=== PATIENT | male | born 1985 | race African-American/Black ===

== ENCOUNTER 2016-09-24 17:25 | Inpatient (IN) | payer OTHER ==
[~2016-09-24] VITALS: Ht 162.6 cm; Wt 102.6 kg
[~2016-09-24 17:25] MED LIST: ACETAMINOPHEN-120 ML PO; AUGMENTIN600 MG/5 M PO; AUGMENTIN80 MG/ML PO; INDOCIN25 MG PO; MEDROL DOSEPAK4 MG PO; NOHOMEMEDS; PREDNISONE10 M1 PO; PREDNISONE20 MG PO; ROXICET 5-325500 ML PO; TRAMADOL HCL50 MG PO; VALIUM5 MG PO; ZITHROMAX500 MG PO
[2016-09-24 18:03] LABS: HEMATOCRIT 40.6 % (38.0-50.0); MCH 30.5 PG (29.0-34.0); MCHC 33.5 G/DL (30.0-36.0); MEAN PLAT.VOLUME 8.5 uM^3 (9.0-12.4); PLATELET COUNT 408 K/uL (156-360); RBC DIS.WIDTH-CV 14.2 % (11.8-14.6); RBC DIS.WIDTH-SD 46.8 % (39-53); RED BLOOD COUNT 4.46 M/uL (4.00-5.50); WHITE BLOOD COUNT 29.1 K/uL (4.1-10.2)
[2016-09-24 18:15] LABS: CHLORIDE 97 mEq/L (99-109); POTASSIUM 4.1 mEq/L (3.7-5.4); SODIUM 136 mEq/L (136-147)
[2016-09-24 18:17] LABS: GLUCOSE 138 mg/dL (70-99)
[2016-09-24 18:18] LABS: ANION GAP 17 MEQ/L (2-14)
[2016-09-24 18:19] LABS: TOTAL BILIRUBIN 1.4 mg/dL (0.0-1.0)
[2016-09-24 18:21] LABS: ALKALINE PHOSPHATASE 107 IU/L (3-129); GFR ESTIMATE (CALCULATED) 19 mL/min/
[2016-09-24 18:22] LABS: UREA NITROGEN (BUN) 33 mg/dL (9-23)
[2016-09-24 18:23] LABS: DIRECT BILIRUBIN 0.8 mg/dL (0.0-0.3)
[2016-09-24 18:24] LABS: LIPASE 30 U/L (1.0-51.0)
[2016-09-24 18:48] LABS: ADD MIUA? YES; BILIRUBIN NEGATIVE; BLOOD LARGE; COLOR DK YELLOW ((YELLOW)); GLUCOSE (STRIP) NEGATIVE; KETONES NEGATIVE; LEUKOCYTES LARGE; NITRITE NEGATIVE; PH, URINE 6.5 (5-8); PROTEIN (STRIP) >=300; SPECIFIC GRAVITY 1.015 (1.000-1.030)
[2016-09-24 19:38] LABS: AMORPHOUS URATES CRYSTALS 1+; CALCIUM OXALATE CRYSTALS 1+; CRYSTALS PRESENT; WHITE BLOOD CELLS TNTC /HPF (0-5)
[2016-09-24 19:39] LABS: BACTERIA 2+; CASTS NONE SEEN /LPF; EPITHELIAL CELLS 1+; MUCUS NONE SEEN; UCUL ADDED? YES
[2016-09-24] MEDS ORDERED: ADVIL200 MG PO (19:55)
[2016-09-24] MEDS ORDERED: TYLENOL EXTRA500 MG PO (19:55)
[2016-09-24 22:05] VITALS: BP 131/75
[2016-09-25 03:28] VITALS: BP 107/68
[2016-09-25 07:24] LABS: HEMATOCRIT 34.7 % (38.0-50.0); MCH 30.6 PG (29.0-34.0); MCHC 32.6 G/DL (30.0-36.0); MEAN PLAT.VOLUME 9.1 uM^3 (9.0-12.4); PLATELET COUNT 311 K/uL (156-360); RBC DIS.WIDTH-CV 14.8 % (11.8-14.6); RBC DIS.WIDTH-SD 50.5 % (39-53); RED BLOOD COUNT 3.69 M/uL (4.00-5.50); WHITE BLOOD COUNT 24.1 K/uL (4.1-10.2)
[2016-09-25 07:28] LABS: ALKALINE PHOSPHATASE 94 IU/L (3-129); ANION GAP 14 MEQ/L (2-14); CHLORIDE 105 MEQ/L (99-109); GFR ESTIMATE (CALCULATED) 19 mL/min/; GLUCOSE 132 mg/dL (70-99); POTASSIUM 4.3 MEQ/L (3.7-5.4); SAMPLE HEMOLYSIS CHECK 0; SAMPLE ICTERIC CHECK 0; SAMPLE LIPEMIA CHECK 0; SODIUM 139 MEQ/L (136-147); UREA NITROGEN (BUN) 36 mg/dL (9-23)
[2016-09-25 07:34] VITALS: BP 136/90
[2016-09-25 11:35] VITALS: BP 143/79
[2016-09-25 15:54] VITALS: BP 167/74
[2016-09-25 23:53] VITALS: BP 147/77
[2016-09-26 07:10] VITALS: BP 134/85
[2016-09-26 15:01] VITALS: BP 143/89
[2016-09-26 23:25] VITALS: BP 137/81
[2016-09-27 06:52] LABS: EOSINOPHIL (%) 0.4 % (0-5); EOSINOPHIL COUNT 0.1 K/uL (0-0.3); HEMATOCRIT 31.4 % (38.0-50.0); IMMATURE GRANULOCYTE (%) 0.9 % (0.0-0.7); IMMATURE GRANULOCYTE COUNT 0.1 K/uL; LYMPHOCYTE COUNT 1.2 K/uL (1.0-2.8); MCH 30.6 PG (29.0-34.0); MCHC 33.4 G/DL (30.0-36.0); MCV 91.5 FL (86-99); MEAN PLAT.VOLUME 9.5 uM^3 (9.0-12.4); MONOCYTE (%) 9.3 % (3-12); MONOCYTE COUNT 1.4 K/uL (0-0.8); NEUTROPHIL (%) 81.3 % (45-76); NEUTROPHIL COUNT 11.9 K/uL (1.8-6.4); PLATELET COUNT 285 K/uL (156-360); RBC DIS.WIDTH-CV 15.4 % (11.8-14.6); RBC DIS.WIDTH-SD 51.9 % (39-53); RED BLOOD COUNT 3.43 M/uL (4.00-5.50); WHITE BLOOD COUNT 14.7 K/uL (4.1-10.2)
[2016-09-27 07:06] LABS: ANION GAP 13 MEQ/L (2-14); CHLORIDE 105 MEQ/L (99-109); GFR ESTIMATE (CALCULATED) 17 mL/min/; GLUCOSE 115 mg/dL (70-99); POTASSIUM 3.8 MEQ/L (3.7-5.4); SAMPLE HEMOLYSIS CHECK 0; SAMPLE ICTERIC CHECK 0; SAMPLE LIPEMIA CHECK 0; SODIUM 133 MEQ/L (136-147); TOTAL BILIRUBIN 1.6 MG/DL (0.0-1.0); UREA NITROGEN (BUN) 35 mg/dL (9-23)
[2016-09-27 07:07] LABS: ALKALINE PHOSPHATASE 126 IU/L (3-129)
[2016-09-27 08:02] VITALS: BP 146/93
[2016-09-27 16:00] VITALS: BP 153/100
[2016-09-28] VITALS: BP 140/81
[2016-09-28 06:35] LABS: EOSINOPHIL COUNT 0.1 K/uL (0-0.3); HEMATOCRIT 31.8 % (38.0-50.0); IMMATURE GRANULOCYTE (%) 1.7 % (0.0-0.7); IMMATURE GRANULOCYTE COUNT 0.2 K/uL; LYMPHOCYTE COUNT 1.3 K/uL (1.0-2.8); MCH 30.1 PG (29.0-34.0); MCHC 32.7 G/DL (30.0-36.0); MCV 92.2 FL (86-99); MEAN PLAT.VOLUME 9.3 uM^3 (9.0-12.4); MONOCYTE (%) 10.8 % (3-12); MONOCYTE COUNT 1.2 K/uL (0-0.8); NEUTROPHIL COUNT 8.7 K/uL (1.8-6.4); PLATELET COUNT 321 K/uL (156-360); RBC DIS.WIDTH-CV 15.7 % (11.8-14.6); RBC DIS.WIDTH-SD 52.7 % (39-53); RED BLOOD COUNT 3.45 M/uL (4.00-5.50); WHITE BLOOD COUNT 11.5 K/uL (4.1-10.2)
[2016-09-28 07:03] LABS: ANION GAP 9 MEQ/L (2-14); CHLORIDE 110 MEQ/L (99-109); GFR ESTIMATE (CALCULATED) 21 mL/min/; GLUCOSE 98 mg/dL (70-99); SAMPLE HEMOLYSIS CHECK 0; SAMPLE ICTERIC CHECK 0; SAMPLE LIPEMIA CHECK 0; SODIUM 139 MEQ/L (136-147); UREA NITROGEN (BUN) 30 mg/dL (9-23)
[2016-09-28 08:04] VITALS: BP 177/98
[2016-09-28 09:00] VITALS: BP 143/96
[2016-09-28 16:31] VITALS: BP 143/97
[2016-09-28 20:26] VITALS: BP 138/80
[2016-09-28 22:56] VITALS: BP 152/82
[2016-09-29 07:52] LABS: HEMATOCRIT 31.1 % (38.0-50.0); MCH 29.6 PG (29.0-34.0); MCHC 31.8 G/DL (30.0-36.0); MCV 93.1 FL (86-99); PLATELET COUNT 382 K/uL (156-360); RBC DIS.WIDTH-CV 15.8 % (11.8-14.6); RED BLOOD COUNT 3.34 M/uL (4.00-5.50); WHITE BLOOD COUNT 11.1 K/uL (4.1-10.2)
[2016-09-29 08:13] VITALS: BP 168/92
[2016-09-29 08:19] LABS: ANION GAP 12 MEQ/L (2-14); CHLORIDE 111 MEQ/L (99-109); GFR ESTIMATE (CALCULATED) 26 mL/min/; GLUCOSE 91 mg/dL (70-99); POTASSIUM 3.9 MEQ/L (3.7-5.4); SAMPLE HEMOLYSIS CHECK 0; SAMPLE ICTERIC CHECK 0; SAMPLE LIPEMIA CHECK 0; SODIUM 141 MEQ/L (136-147); UREA NITROGEN (BUN) 21 mg/dL (9-23)
[2016-09-29 10:09] LABS: EOSINOPHIL (%) 1.4 % (0-5); EOSINOPHIL COUNT 0.2 K/uL (0-0.3); HEMATOLOGY COMMENT 1 SMEAR COMPATIBLE; IMMATURE GRANULOCYTE (%) 4.8 % (0.0-0.7); IMMATURE GRANULOCYTE COUNT 0.5 K/uL; LYMPHOCYTE COUNT 1.3 K/uL (1.0-2.8); MONOCYTE COUNT 1.1 K/uL (0-0.8); NEUTROPHIL (%) 71.6 % (45-76); NEUTROPHIL COUNT 7.9 K/uL (1.8-6.4); USER ID STC
[2016-09-29 16:34] VITALS: BP 158/89
[2016-09-29 19:37] LABS: C DIFF TOXIN POSITIVE (NEGATIVE)
[2016-09-29 19:39] LABS: PROBE CHECK PASS
[2016-09-30 03:06] VITALS: BP 140/82
[2016-09-30 07:25] LABS: HEMATOCRIT 30.4 % (38.0-50.0); MCHC 31.9 G/DL (30.0-36.0); MCV 94.1 FL (86-99); RBC DIS.WIDTH-CV 16.1 % (11.8-14.6); RBC DIS.WIDTH-SD 55.3 % (39-53); RED BLOOD COUNT 3.23 M/uL (4.00-5.50); WHITE BLOOD COUNT 12.1 K/uL (4.1-10.2)
[2016-09-30 08:27] LABS: ANION GAP 10 MEQ/L (2-14); CHLORIDE 112 MEQ/L (99-109); GFR ESTIMATE (CALCULATED) 34 mL/min/; GLUCOSE 89 mg/dL (70-99); POTASSIUM 4.2 MEQ/L (3.7-5.4); SAMPLE HEMOLYSIS CHECK 0; SAMPLE ICTERIC CHECK 0; SAMPLE LIPEMIA CHECK 0; SODIUM 139 MEQ/L (136-147); UREA NITROGEN (BUN) 17 mg/dL (9-23)
[2016-09-30 08:28] LABS: ABS NEUTROPHIL COUNT 8.19; ANISOCYTOSIS OCC; EOSINOPHIL ABS CT 0.48; HYPOCHROMASIA OCC; MEAN PLAT.VOLUME 9.2 uM^3 (9.0-12.4); PLAT.SUFFICIENCY INCREASED; PLATELET COUNT 432 K/uL (156-360); USER ID CL
[2016-09-30 11:02] VITALS: BP 147/88
[2016-09-30 14:57] LABS: DELETE MACHINE DIFF? YES
[2016-09-30 16:28] VITALS: BP 179/95
[2016-09-30 23:14] VITALS: BP 165/89
[2016-10-01 06:55] LABS: HEMATOCRIT 30.4 % (38.0-50.0); MCH 30.1 PG (29.0-34.0); MCHC 31.9 G/DL (30.0-36.0); MCV 94.4 FL (86-99); MEAN PLAT.VOLUME 8.9 uM^3 (9.0-12.4); PLATELET COUNT 472 K/uL (156-360); RBC DIS.WIDTH-SD 55.8 % (39-53); RED BLOOD COUNT 3.22 M/uL (4.00-5.50); WHITE BLOOD COUNT 12.1 K/uL (4.1-10.2)
[2016-10-01 07:25] LABS: ANION GAP 9 MEQ/L (2-14); CHLORIDE 113 MEQ/L (99-109); GFR ESTIMATE (CALCULATED) 35 mL/min/; GLUCOSE 88 mg/dL (70-99); POTASSIUM 4.5 MEQ/L (3.7-5.4); SAMPLE HEMOLYSIS CHECK 0; SAMPLE ICTERIC CHECK 0; SAMPLE LIPEMIA CHECK 0; SODIUM 143 MEQ/L (136-147); UREA NITROGEN (BUN) 16 mg/dL (9-23)
[2016-10-01 07:47] VITALS: BP 169/95
[2016-10-01 07:56] LABS: ABS NEUTROPHIL COUNT 8.95; ANISOCYTOSIS 1+; BASOPHIL COUNT 0.1 K/uL (0-0.1); EOSINOPHIL ABS CT 0.12; EOSINOPHIL COUNT 0.2 K/uL (0-0.3); IMMATURE GRANULOCYTE (%) 6.7 % (0.0-0.7); IMMATURE GRANULOCYTE COUNT 0.8 K/uL; LYMPHOCYTE COUNT 1.6 K/uL (1.0-2.8); MACROCYTES OCC; MONOCYTE (%) 8.2 % (3-12); NEUTROPHIL (%) 69.2 % (45-76); NEUTROPHIL COUNT 8.4 K/uL (1.8-6.4); PLAT.SUFFICIENCY INCREASED; USER ID CCL
[2016-10-01 18:37] VITALS: BP 158/69
[2016-10-01] MEDS ORDERED: CIPROFLOXACIN500 M1 PO (18:43)
[2016-10-01] MEDS ORDERED: AMLODIPINE BES2.5 MG PO (18:44)
[2016-10-01] MEDS ORDERED: TAMSULOSIN HCL0.4 MG PO (18:45)
== END 2016-10-01 19:04 | disposition home or self-care (01) | DRG 872 ==
LOC: EME 17:25 → EDOF 20:31 → 5EAST 20:31
PROVIDERS: Internal Medicine
DX: A41.81 Sepsis due to Enterococcus (principal); N10 Acute pyelonephritis; N13.6 Pyonephrosis; N17.9 Acute kidney failure, unspecified; A04.7 Enterocolitis due to Clostridium difficile; E87.2 Acidosis; E87.1 Hypo-osmolality and hyponatremia; E86.0 Dehydration; G89.29 Other chronic pain; F90.0 Attention-deficit hyperactivity disorder, predominantly inattentive type; F17.210 Nicotine dependence, cigarettes, uncomplicated; E66.9 Obesity, unspecified; Z68.38 Body mass index [BMI] 38.0-38.9, adult; F10.21 Alcohol dependence, in remission; I10 Essential (primary) hypertension; E78.5 Hyperlipidemia, unspecified; D64.9 Anemia, unspecified
CPT/HCPCS: 71020; 74000; 74176; 80048; 80053; 80069; 81003; 82248; 83605; 83690; 85025; 85027; 87040; 87077; 87086; 87186; 87493; 87801; 94799; 99281; 99285; C1876; J0696; J1170; J2250; J2270; J2405; J3010; J7030; J7050

== ENCOUNTER → 2016-10-29 | Outpatient (CLI) | payer OTHER ==
[~2016-10-29] VITALS: Ht 175.3 cm; Wt 106.6 kg
[~2016-10-29] MED LIST changes: +ADVIL200 MG PO; +AMLODIPINE BES2.5 MG PO; +CIPROFLOXACIN500 M1 PO; +FLOMAX0.4 MG PO; +NORVASC5 MG PO; +PRILOSEC20 MG PO; +TAMSULOSIN HCL0.4 MG PO; +TYLENOL EXTRA500 MG PO
== END | disposition home or self-care (01) ==
LOC: AMB 07:28
PROC: 0TF7XZZ Fragmentation in Left Ureter, External Approach (ICD-10-PCS; principal; 2016-10-29)
DX: N20.1 Calculus of ureter (principal); K21.9 Gastro-esophageal reflux disease without esophagitis; F17.200 Nicotine dependence, unspecified, uncomplicated; I10 Essential (primary) hypertension
CPT/HCPCS: 74010; 93005; J2250; J3010

== ENCOUNTER 2018-01-12 00:21 | Emergency (ER) | payer OTHER ==
[~2018-01-12] VITALS: Ht 175.3 cm; Wt 102.3 kg
[2018-01-12 01:39] LABS: HEMATOCRIT 48.3 % (38.0-50.0); MCH 29.8 PG (29.0-34.0); MCHC 33.1 G/DL (30.0-36.0); MCV 89.9 FL (86-99); PLATELET COUNT 387 K/uL (156-360); RBC DIS.WIDTH-CV 14.6 % (11.8-14.6); RBC DIS.WIDTH-SD 47.5 % (39-53); RED BLOOD COUNT 5.37 M/uL (4.00-5.50); WHITE BLOOD COUNT 12.7 K/uL (4.1-10.2)
[2018-01-12 01:50] LABS: CHLORIDE 105 mEq/L (99-109); SODIUM 137 mEq/L (136-147)
[2018-01-12 01:51] LABS: GLUCOSE 115 mg/dL (70-99)
[2018-01-12 01:55] LABS: CREATININE 1.3 mg/dL (0.6-1.3); GFR ESTIMATE (CALCULATED) > 59 mL/min/ (58.99-99999)
[2018-01-12 01:56] LABS: UREA NITROGEN (BUN) 14 mg/dL (9-23)
[2018-01-12 02:00] LABS: TROP-I INTERPRETATION NEGATIVE; TROPONIN-I < 0.01 ng/mL (0.0-0.30)
[2018-01-12 02:19] VITALS: BP 142/89
== END 2018-01-12 02:21 | disposition home or self-care (01) ==
LOC: EME → EDBD 00:21 → EME 02:21
PROVIDERS: Emergency Medicine
DX: R07.9 Chest pain, unspecified (principal); R20.2 Paresthesia of skin; E78.5 Hyperlipidemia, unspecified; F17.200 Nicotine dependence, unspecified, uncomplicated
CPT/HCPCS: 71046; 80048; 84484; 85027; 93005; 99281; 99284